=== PATIENT | male | born 1965 | race Caucasian/White ===

== ENCOUNTER 2024-06-30 10:38 | Outpatient (CLI) | payer OTHER | END 2024-06-30 10:39 | disposition home or self-care (01) | LOC: CSHCT 10:38 | PROVIDERS: ATTEND Physician Assistant | DX: I44.7 Left bundle-branch block, unspecified (principal); I25.10 Atherosclerotic heart disease of native coronary artery without angina pectoris; I25.84 Coronary atherosclerosis due to calcified coronary lesion | CPT/HCPCS: 75571 ==